=== PATIENT | male | born 2000 | race African-American/Black ===

== ENCOUNTER 2020-04-04 09:19 | Outpatient (REF) | payer OTHER, SELFPAY ==
[2020-04-04 10:06] LABS: MANUAL DIFF FLAG NO
[2020-04-04 10:30] LABS: Alanine Aminotransferase 14 U/L (0-40); Albumin Level 4.7 g/dL (3.5-5.0); Alkaline Phosphatase 86 U/L (39-117); Anion Gap 13 (12-20); Aspartate Amino Transferase 17 U/L (5-37); Bilirubin Total 1.5 mg/dL (0.0-1.0); Blood Urea Nitrogen 17 mg/dL (9-16); Calcium 9.5 mg/dL (8.4-10.2); Carbon Dioxide 27 mmol/L (22-29); Chloride 104 mmol/L (96-108); Cholesterol 126 mg/dL; Estimated Glomerular Filt Rate > 60; Glucose Fasting 85 mg/dL (60-99); HDL Cholesterol 49 mg/dL; LDL Cholesterol Calculated 69 mg/dl; Potassium 4.2 mmol/l (3.3-5.1); Sodium 140 mmol/L (135-145); Total Protein 7.2 g/dL (6.5-8.0); Triglycerides 44 mg/dL
[2020-04-04 10:33] LABS: Basophils Percent Auto 0.5 % (0-2); Eosinophils Absolute Auto 0.2 X10*3/uL (0.0-0.4); Eosinophils Percent Auto 4.7 % (0-4); Lymphocytes Absolute Auto 1.6 X10*3/uL (1.2-4.9); Lymphocytes Percent Auto 40.3 % (20-40); Mean Corpuscular HGB Conc 32.6 g/dl (31.0-36.0); Mean Corpuscular Hemoglobin 27.9 pg (27.0-33.0); Mean Corpuscular Volume 85.7 fL (80-98); Mean Platelet Volume 11.7 fL (9.4-12.4); Monocytes Absolute Auto 0.4 X10*3/uL (0.1-1.2); Monocytes Percent Auto 10.1 % (2-11); Neutrophils Absolute Auto 1.8 X10*3/uL (2.0-8.3); Neutrophils Percent Auto 44.4 % (45-73); Platelet Count 203 X10*3/uL (160-400); Red Blood Count 5.02 X10*6/uL (4.60-5.80); Red Cell Distribution Width 12.4 % (11.0-16.0)
== END 2020-04-04 09:20 | disposition home or self-care (01) ==
LOC: HO.LAB 09:19
PROVIDERS: PCP Internal Medicine; Visit Provider Internal Medicine
DX: E11.9 Type 2 diabetes mellitus without complications (principal); Z00.00 Encounter for general adult medical examination without abnormal findings
CPT/HCPCS: 36415; 80053; 80061; 85025

== ENCOUNTER 2020-05-12 09:14 | Outpatient (REF) | payer OTHER, SELFPAY | END 2020-05-12 09:15 | disposition home or self-care (01) | LOC: HO.LAB 09:14 | PROVIDERS: PCP Internal Medicine; Visit Provider Internal Medicine | DX: Z20.822 Contact with and (suspected) exposure to COVID-19 (principal) | CPT/HCPCS: 36415; C9803; U0003 ==

== ENCOUNTER → 2020-12-14 11:04 | Outpatient (BNVA) | payer SELFPAY | PROVIDERS: PCP Internal Medicine | DX: R76.11 Nonspecific reaction to tuberculin skin test without active tuberculosis (principal) ==

== ENCOUNTER 2021-08-04 10:45 | Outpatient (REF) | payer OTHER, SELFPAY ==
[2021-08-04 10:56] LABS: MANUAL DIFF FLAG NO
[2021-08-04 11:37] LABS: Basophils Percent Auto 0.9 % (0-2); Eosinophils Absolute Auto 0.3 X10*3/uL (0.0-0.4); Eosinophils Percent Auto 7.8 % (0-4); Hematocrit 44.6 % (42.0-52.0); Hemoglobin 14.3 g/dl (14.0-18.0); Imm Gran Abs Auto 0.01 X10*3/uL (0.00-0.03); Imm Gran Pct Auto 0.3 % (0.0-0.4); Lymphocytes Absolute Auto 1.4 X10*3/uL (1.2-4.9); Lymphocytes Percent Auto 43.9 % (20-40); Mean Corpuscular HGB Conc 32.1 g/dl (31.0-36.0); Mean Corpuscular Hemoglobin 28.4 pg (27.0-33.0); Mean Corpuscular Volume 88.7 fL (80.0-98.0); Mean Platelet Volume 10.9 fL (9.4-12.4); Monocytes Absolute Auto 0.3 X10*3/uL (0.1-1.2); Monocytes Percent Auto 10.7 % (2-11); Neutrophils Absolute Auto 1.2 x10*3/uL (2.0-8.3); Neutrophils Percent Auto 36.4 % (45-73); Platelet Count 232 X10*3/uL (160-400); Red Blood Count 5.03 X10*6/uL (4.60-5.80); White Blood Count 3.2 X10*3/uL (4.8-10.8)
[2021-08-04 12:47] LABS: Alanine Aminotransferase 17 U/L (0-40); Albumin Level 4.7 g/dL (3.5-5.0); Alkaline Phosphatase 89 U/L (39-117); Anion Gap 11 (12-20); Aspartate Amino Transferase 22 U/L (5-37); Bilirubin Total 1.7 mg/dL (0.0-1.0); Blood Urea Nitrogen 11 mg/dL (9-16); Carbon Dioxide 28 mmol/L (22-29); Chloride 104 mmol/L (96-108); Cholesterol 121 mg/dL; Estimated Glomerular Filt Rate > 60; Glucose Fasting 82 mg/dL (60-99); HDL Cholesterol 46 mg/dL; LDL Cholesterol Calculated 68 mg/dl; Potassium 4.7 mmol/L (3.3-5.1); Sodium 138 mmol/L (135-145); Total Protein 7.3 g/dL (6.5-8.0); Triglycerides 35 mg/dL
[2021-08-04 13:01] LABS: Thyroid Stimulating Hormone 1.12 uIU/mL (0.32-4.0)
== END 2021-08-04 10:46 | disposition home or self-care (01) ==
LOC: HO.LAB 10:45
PROVIDERS: PCP Internal Medicine; Visit Provider Internal Medicine
DX: Z00.00 Encounter for general adult medical examination without abnormal findings (principal); Z13.0 Encounter for screening for diseases of the blood and blood-forming organs and certain disorders involving the immune mechanism
CPT/HCPCS: 36415; 80053; 80061; 84443; 85025

== ENCOUNTER 2023-01-16 19:07 | Emergency (ER) | payer OTHER, SELFPAY ==
--- NOTE | ~2023-01-16 | CT_ITS ---
EXAMINATION: CT ABDOMEN AND PELVIS WITH CONTRAST CLINICAL INFORMATION: Mass right lower quadrant pain COMPARISON: None available. TECHNIQUE: Multidetector volumetric images were obtained from the superior aspect of the liver through the pubic symphysis following administration 85 mL of Omnipaque 350 intravenous contrast. Sagittal and coronal reformatted images were obtained on the technologist's workstation. Oral contrast: No This CT examination was performed using dose optimization techniques as appropriate, variously including the following: *Automated exposure control *Adjustment of mA and/or kV according to patient size (this includes techniques or standardized protocols for targeted exams where dose is matched to indication/reason for exam; i.e. extremities or head) *Use of iterative reconstruction technique DLP: 337 mGy-cm FINDINGS: LUNG BASES: The visualized lung bases are unremarkable. LIVER, GALLBLADDER, AND BILIARY TREE: The liver is normal in size, shape, and attenuation. No focal hepatic lesion or biliary ductal dilatation is present. The gallbladder is unremarkable with no evidence of radiopaque gallstones, gallbladder wall thickening, or obvious pericholecystic inflammatory changes. PANCREAS: Unremarkable. SPLEEN: Unremarkable. ADRENAL GLANDS: Unremarkable. KIDNEYS AND URETERS: The kidneys are normal in size, shape, and attenuation. No hydronephrosis, hydroureter, or calculi seen. No perinephric stranding. BLADDER: Unremarkable. GASTROINTESTINAL TRACT: No evidence of bowel obstruction or significant wall thickening. Appendix appears to be nondilated, with no surrounding inflammatory changes. No free fluid or free air is seen. ABDOMINAL WALL: No significant hernia is appreciated. LYMPH NODES: Normal. VASCULAR: Unremarkable. PELVIC VISCERA: Unremarkable. OSSEOUS STRUCTURES: Bilateral L5 pars defects are noted. CT/CT abdomen pelvis w IV con IMPRESSION: No acute findings identified in the abdomen/pelvis.
[2023-01-16 19:21] VITALS: BP 148/87; PULSE 63; RESP 18; TEMP 36.6; O2SAT 100; BMI 21.1
--- NOTE | 2023-01-16 19:26 | ED.GENADULT ---
HPI - General Adult General Chief complaint: Urogenital-Male Stated complaint: ?uti sent from urgent care Time Seen by Provider: 01/16/23 23:02 Source: patient and old records reviewed Mode of arrival: ambulatory Limitations: no limitations History of Present Illness HPI narrative: 22 yo male with no PMH who has sex with male and female partners sometimes unprotected recently unprotected with male partner - states he takes PrEp and is compliant. Was just tested for HIV last week and it was negative. He was started on doxy 01/13 and given ceftriaxone for presumed STI after going to [facility] on 01/13 he has been compliant. He was seen for R lymph node in groin and dysuria with dribbling but no drainage. He states his workup was negative but it was too early from exposure. He states he has had regular negative HIV tests every 6 months. He came tonight as the mass is painful and not getting better. He has no fevers. complaint: groin mass Onset (ago): week(s) (1.5) Location: pelvis and right Radiation: non-radiation Severity: moderate Quality: aching Pain Consistency: constant Relieving factors: none Exacerbating factors: movement and other (palpation) Associated symptoms: other (dysuria) Treatments prior to arrival: none Related Data Home Medications Medication Instructions Recorded Confirmed emtricitabine 200 mg-tenofovir 1 tab PO DAILY 07/15/20 08/12/22 disoproxil fumarate 300 mg tablet cevimeline 30 mg capsule 1 cap PO TID 08/04/21 08/12/22 hydroxychloroquine 200 mg tablet 200 mg PO DAILY 08/04/21 08/12/22 Previous Rx's Medication Instructions Recorded hydrocortisone 2.5 % topical cream 1 appl DC BID-QID PRN hemorrhoids 09/24/21 with perineal applicator #30 grams (Anusol-HC) Allergies Allergy/AdvReac Type Severity Reaction Status Date / Time benzoyl peroxide Allergy Unknown Facial Verified 01/16/23 19:26 Swelling onion Allergy Unknown Headache Verified 01/16/23 19:26 peanut Allergy Unknown Facial Verified 01/16/23 19:26 Swelling Review of Systems Review of Systems: Constitutional : No Weight loss, No Fever, No Chills, no night sweats ENT/Mouth : No sore throat, No Rhinorrhea Eyes: No Swelling, No Redness Cardiovascular : No Chest Pain, No SOB, NoEdema Respiratory : No Cough, No Sputum, No Wheezing Gastrointestinal : no Nausea, no Vomiting, no Diarrhea, positive abdominal Pain, No Hematochezia, No Melena Genitourinary : pos Dysuria, No Urinary Frequency, No Hematuria, No Urgency Musculoskeletal : No joint pain, No Myalgias, No Joint Swelling Skin : No Skin Lesions, No rash Neuro : No Weakness, No Numbness, No Dizziness, No Headache Psych : No Anxiety/Panic, No Depression Heme/Lymph: No Bruising, pos Lymphadenopathy All other systems reviewed and are negative. [facility] Past Medical History Attestation statement: The following information was validated with the patient. Medical History Sjogrens syndrome Surgical History No pertinent past surgical history Family History Family History Father No problems noted. Mother No problems noted. Social History Social History Housing: Apartment Alcohol intake: never Patient Tobacco Use Status: Never used Tobacco e-Cigarette/Vaping Use: Never Used Second Hand Smoke Exposure: No Advance Directives: No Advance Directives Information Provided: No service: No Current occupational status: student Current occupational exposures/hazards: No Cognitive needs: No Hearing needs: No Vision needs: No Physical Exam ED Vital Signs: Vital Signs - 24 hr 01/16/23 19:21 01/16/23 22:47 Temperature 97.8 F 97.8 F Pulse Rate 63 65 Respiratory Rate 18 18 Blood Pressure 148/87 H 135/89 Pulse Oximetry 100 100 Oxygen Delivery Method Room Air Room Air BMI result Body Mass Index 21.1 Appearance: Alert. Oriented X3. No acute distress. Eyes: Pupils equal, round and reactive to light. ENT: Pharynx normal. Neck: Normal inspection. Neck supple. no lymphadenopathy CVS: Normal heart rate and rhythm. Pulses normal. Respiratory: No respiratory distress. Breath sounds normal. Abdomen: Soft and non-tender. : testicles and penis are normal. R groin soft but boggy 2cm node felt no necrosis felt. Skin: Skin warm and dry. Normal skin color. Normal skin turgor. Extremities: No lower extremity edema. Neuro: Oriented X 3. No motor deficit. No sensory deficit. Course Course Course Narrative: RME performed by Geovanna Porter PA-C. Patient is a 22 year old assigned male at presenting to the emergency department with right groin swelling. Patient was seen at a sexual health clinic that tested and treated him for STI despite him being negative. Patient states that he is on day 4 of doxycycline but it is not getting better. Patient states that he is also having pain with urination. Labs ordered. Patient placed back in the waiting room pending room availability and results. Medications Administered Discontinued Medications Generic Name Dose Route Start Last Admin Trade Name Freq PRN Reason Stop Dose Admin Iohexol 85 ml 01/17/23 00:27 01/17/23 00:27 Iohexol 350 Mg/Ml 100 Ml Infus..Btl IV 01/17/23 00:28 85 ml ONCE ONE Administration Medical Decision Making Medical Decision Making [facility] Narrative: 22 yo male who is on PrEp has unprotected sex with males and females now with painful node in R groin already on doxy since 01/13 with no improvement he has no other B symptoms - he reports recent negative HIV test and 6 months ago negative test. At this time penis and testicles are normal no hernia felt is seems like a node. Will obtain labs, UA, CT scan of area to look for other lymphadenopathy or signs of abscess. Could be ducreyi, HIV or LGV would need extension of treatment to 21 days and PCP follow up. Differential Diagnosis Differential Diagnoses: The differential diagnosis associated with the presentation includes abscess, HIV, LGV, ducreyi Admission/Observation Consideration of admission/observation: Escalation of care including admission/observation considered labs at baseline, urine negative studies pending at this time will continue doxy and follow up will have him follow up with [facility] to possibly continue 21 days of treatment Lab Data [facility] Lab Attestation statement: I reviewed the patient's lab results. WBC around his trend 01/16/23 20:22 01/16/23 20:22 Labs: Lab Results 01/16/23 Range/Units 20:22 WBC 2.7 L (4.8-10.8) X10*3/uL RBC 4.86 (4.60-5.80) X10*6/uL Hgb 13.8 L (14.0-18.0) g/dl Hct 42.1 (42.0-52.0) % MCV 86.6 (80.0-98.0) fL MCH 28.4 (27.0-33.0) pg MCHC 32.8 (31.0-36.0) g/dl RDW 12.3 (11.0-16.0) % Plt Count 183 (160-400) X10*3/uL MPV 10.9 (9.4-12.4) fL Immature Gran % (Auto) 0.0 (0.0-0.4) % Neut % (Auto) 19.5 L (45-73) % Lymph % (Auto) 53.9 H (20-40) % [place] % (Auto) 18.1 H (2-11) % Eos % (Auto) 8.1 H (0-4) % Baso % (Auto) 0.4 (0-2) % Lymph # (Auto) 1.5 (1.2-4.9) X10*3/uL [place] # (Auto) 0.5 (0.1-1.2) X10*3/uL Eos # (Auto) 0.2 (0.0-0.4) X10*3/uL Baso # (Auto) 0.0 (0.0-0.2) X10*3/uL Abs Immat Gran (auto) 0.00 (0.00-0.03) X10*3/uL Absolute Neuts (auto) 0.5 L (2.0-8.3) x10*3/uL Absolute Nucleated RBC 0.000 (0.0-0.012) X10*3/uL Nucleated RBC % (auto) 0.0 (0.0-0.2) /100WBC Sodium 141 (135-145) mmol/L Potassium 4.3 (3.3-5.1) mmol/L Chloride 110 H (96-108) mmol/L Carbon Dioxide 22 (22-29) mmol/L Anion Gap 13 (12-20) BUN 8 L (9-16) mg/dL Creatinine 0.81 (0.5-1.4) mg/dL Estim Creat Clear Calc 120.2 Estimated GFR > 60 Random Glucose 95 (60-115) mg/dL Calcium 9.0 D (8.4-10.2) mg/dL Magnesium 2.2 (1.6-2.6) mg/dL Total Bilirubin 0.8 (0.0-1.0) mg/dL AST 21 (5-37) U/L ALT 17 (0-40) U/L Alkaline Phosphatase 98 (39-117) U/L Total Protein 7.0 (6.5-8.0) g/dL Albumin 4.4 (3.5-5.0) g/dL Urine Color Yellow Urine Appearance Clear Urine pH 6.5 (5.0-9.0) Ur Specific [place] 1.010 (1.005-1.025) Urine Protein Negative (Neg-Trace) mg/dL Urine Glucose (UA) Negative (Negative) mg/dL Urine Ketones Negative (Negative) mg/dL Urine Blood Negative (Negative) Urine Nitrite Negative (Negative) Ur Leukocyte Esterase Negative (Negative) T.pallidum Ab (EIA) Nonreactive (Nonreactive) Monoscreen Negative (Negative) HIV 1&2 Ab/P24 Ag 4thGn Nonreactive (Nonreactive) Independent Interpretation I performed an independent interpretation of an: CT Scan (no lymphadenopathy, no hernia) Radiology Impression Discussion of test interpretation with radiology: I have reviewed the radiologist's reading. External Record Review External record reviewed: Inpatient record Prescription Management I considered prescription management with: Antibiotic Discharge Plan Discharge Clinical Impression: Inguinal mass Leukopenia Qualifiers: Leukopenia type: unspecified Qualified Code(s): D72.819 - Decreased white blood cell count, unspecified Patient Disposition: Home, Self-Care Instructions: Adenitis (ED) Additional Instructions: at this time continue the doxycycline return for worsening symptoms. Return for fevers, vomiting, at this time pending syphillis and HIV we will call for positive test. CT scan no mass or lesion seen. I want you to follow up with [facility] to assess for improvement in 1 week - may need 21 days of treatment for possible LGV. please follow up with your doctor about chronically low WBC counts. Please also see your doctor about this lesion in 2 days for check. Prescriptions: No Action hydrocortisone [Anusol-HC] 2.5 % cream with perineal applicator 1 appl DC BID-QID PRN (Reason: hemorrhoids) Qty: 30 2RF emtricitabine-tenofovir (TDF) 200-300 mg tablet 1 tab PO DAILY hydroxychloroquine 200 mg tablet 200 mg PO DAILY cevimeline 30 mg capsule 1 cap PO TID Interventions: ED Discharge Assessment Last Done: 01/17/23 02:25 Discharge Date/Time: 01/17/23 02:25
[2023-01-16 20:27] LABS: MANUAL DIFF FLAG NO
[2023-01-16 20:29] LABS: Appearance Urine Clear; Basophils Percent Auto 0.4 % (0-2); Color Urine Yellow; Eosinophils Absolute Auto 0.2 X10*3/uL (0.0-0.4); Eosinophils Percent Auto 8.1 % (0-4); Glucose Urine UA Negative (Negative); Hematocrit 42.1 % (42.0-52.0); Hemoglobin 13.8 g/dl (14.0-18.0); Leukocyte Esterase Urine Negative (Negative); Lymphocytes Absolute Auto 1.5 X10*3/uL (1.2-4.9); Lymphocytes Percent Auto 53.9 % (20-40); Mean Corpuscular HGB Conc 32.8 g/dl (31.0-36.0); Mean Corpuscular Hemoglobin 28.4 pg (27.0-33.0); Mean Corpuscular Volume 86.6 fL (80.0-98.0); Mean Platelet Volume 10.9 fL (9.4-12.4); Monocytes Absolute Auto 0.5 X10*3/uL (0.1-1.2); Monocytes Percent Auto 18.1 % (2-11); Neutrophils Absolute Auto 0.5 x10*3/uL (2.0-8.3); Neutrophils Percent Auto 19.5 % (45-73); Nitrite Urine Negative (Negative); PH 6.5 (5.0-9.0); Platelet Count 183 X10*3/uL (160-400); Red Blood Count 4.86 X10*6/uL (4.60-5.80); Red Cell Distribution Width 12.3 % (11.0-16.0); SCAN SMEAR FLAG 1; Urine Blood Negative (Negative); Urine Ketones Negative (Negative); Urine Protein Negative (Neg-Trace); White Blood Count 2.7 X10*3/uL (4.8-10.8)
[2023-01-16 20:42] LABS: Alanine Aminotransferase 17 U/L (0-40); Albumin Level 4.4 g/dL (3.5-5.0); Alkaline Phosphatase 98 U/L (39-117); Anion Gap 13 (12-20); Aspartate Amino Transferase 21 U/L (5-37); Bilirubin Total 0.8 mg/dL (0.0-1.0); Blood Urea Nitrogen 8 mg/dL (9-16); Carbon Dioxide 22 mmol/L (22-29); Chloride 110 mmol/L (96-108); Creatinine Clr Calc Pharmacy 120.2; Estimated Glomerular Filt Rate > 60; Glucose Random 95 mg/dL (60-115); Magnesium 2.2 mg/dL (1.6-2.6); Potassium 4.3 mmol/L (3.3-5.1); Sodium 141 mmol/L (135-145)
[2023-01-16 22:47] VITALS: BP 135/89; PULSE 65; RESP 18; TEMP 36.6; O2SAT 100
[2023-01-16 23:46] LABS: Monotest Negative (Negative)
[2023-01-17] MEDS: iohexoL 350 MG/ML 100 ML INFUS..BTL 85 ML IV (00:27)
[2023-01-17 03:38] LABS: Syphilis Screen Nonreactive (Nonreactive)
[2023-01-17 03:45] LABS: HIV AB/AG Nonreactive (Nonreactive); HIV Num 1 0.07 S/CO (0.00-0.99)
== END 2023-01-17 02:25 | disposition home or self-care (01) ==
PROVIDERS: Physician Assistant Medical; Emergency Provider Emergency Medicine; PCP Internal Medicine
DX: R19.09 Other intra-abdominal and pelvic swelling, mass and lump (principal); D72.819 Decreased white blood cell count, unspecified; M35.00 Sjogren syndrome, unspecified
CPT/HCPCS: 36415; 74177; 80053; 81003; 83735; 85025; 86308; 86780; 87389; 99283; 99284; Q9967

== ENCOUNTER 2023-01-18 13:31 | Emergency (ER) | payer OTHER, SELFPAY ==
[2023-01-18 13:44] VITALS: BP 135/88; PULSE 69; RESP 16; TEMP 36.6; O2SAT 100; BMI 21.1
--- NOTE | 2023-01-18 14:36 | ED_ITS ---
HPI - Male Genitourinary General Chief complaint: Urogenital-Male Stated complaint: Injury To Private Area Wk And A Half Ago Time Seen by Provider: 01/18/23 14:35 Source: patient Mode of arrival: ambulatory Limitations: no limitations History of Present Illness HPI Narrative: Patient is a 22 year old assigned male at with a history of Sjogrens syndrome presenting to the emergency department today with penile pain and urinary incontinence. Patient states that 12 days ago he was having unprotected sex that involved forceful thrusting. Patient states that during intercourse, he felt a pop in his penis but did not have any remarkable pain immediately after. Patient states that afterwards, he noticed a lymph node in his groin become swollen. Patient states that he was seen both here and at the [facility] where he was tested and treated for all STIs. Patient states that he is still on his prescribed Doxycycline. Patient states that his complaint today is the tip of his penis has minimal redness and swelling. Patient states that he is having some urinary dribbling from his penis that his new for him since this has begun. Patient states that he is also having some pain with urination. Patient states he feels as though something is obstructing within his penis. Patient denies any dizziness, lightheadedness, abdominal pain, nausea, vomiting, fever, chills, blurry vision, double vision, loss of vision, chest pain, difficulty breathing, shortness of breath, back pain, night sweats, increased urinary frequency, increased urinary urgency, blood in his urine or stool, syncope or a near syncopal episode, recent trauma or falls, bowel incontinence, bladder incontinence, bowel retention, bladder retention, or any other complaints at this time. MD Complaint: other (penile pain) Onset (ago): day(s) () Duration: constant Location: penis Severity: mild Severity scale (1-10): 3 Quality: aching and dull Relieving factors: none Exacerbating factors: none Context: new sexual partner Associated symptoms: Reports dysuria Related Data Sexually active: Yes Home Medications Medication Instructions Recorded Confirmed emtricitabine 200 mg-tenofovir 1 tab PO DAILY 07/15/20 08/12/22 disoproxil fumarate 300 mg tablet cevimeline 30 mg capsule 1 cap PO TID 08/04/21 08/12/22 hydroxychloroquine 200 mg tablet 200 mg PO DAILY 08/04/21 08/12/22 Previous Rx's Medication Instructions Recorded hydrocortisone 2.5 % topical cream 1 appl DE BID-QID PRN hemorrhoids 09/24/21 with perineal applicator #30 grams (Anusol-HC) Allergies Allergy/AdvReac Type Severity Reaction Status Date / Time benzoyl peroxide Allergy Unknown Facial Verified 01/18/23 13:43 Swelling onion Allergy Unknown Headache Verified 01/18/23 13:43 peanut Allergy Unknown Facial Verified 01/18/23 13:43 Swelling Review of Systems Constitutional: Constitutional: Reports no additional constitutional complaints, Denies chills, Denies fever(s) and Denies night sweats Eyes: Eyes: Reports no additional eye complaints, Denies blurry vision, Denies change in vision, Denies diplopia, Denies eye discharge, Denies loss of vision and Denies eye pain ENT: Denies dizziness Cardiovascular: Cardiovascular: Reports no additional cardiovascular complaints, Denies chest pain, Denies lightheadedness, Denies Loss of Consciousness and Denies dyspnea Respiratory: Respiratory: Reports no additional respiratory complaints and Denies dyspnea Gastrointestinal: Gastrointestinal: Reports no additional gastrointestinal complaints, Denies abdominal pain, Denies melena, Denies hematochezia, Denies change in bowel habits and Denies change in stool character Genitourinary: Genitourinary: Reports no additional male genitourinary complaints, Denies hematuria, Denies oliguria, Denies difficulty urinating, Reports dysuria, Denies urinary frequency, Denies urinary hesitancy, Denies urinary incontinence and Denies urinary urgency Comments: penile pain Musculoskeletal: Musculoskeletal: Reports no additional musculoskeletal complaints, Denies numbness and Denies tingling Neurologic: Denies dizziness, Denies loss of vision, Denies numbness and Denies tingling Psychiatric: Psychiatric: Reports no additional psychiatric complaints Endocrine: Endocrine: Reports no additional endocrine complaints Hematologic/Lymphatic: Hematologic/Lymphatic: Reports no additional hematologic/lymphatic complaints Allergic/Immunologic: Allergic/Immunologic: Reports no additional allergic/immunologic complaints PMFSH Past Medical History Attestation statement: The following information was validated with the patient. Source: old records reviewed and nursing notes reviewed Medical History Rash on lips Physical exam Sjogrens syndrome Surgical History No pertinent past surgical history Family History Family History Father No problems noted. Mother No problems noted. Social History Social History Housing: Apartment Alcohol intake: never Patient Tobacco Use Status: Never used Tobacco e-Cigarette/Vaping Use: Never Used Second Hand Smoke Exposure: No service: No Current occupational status: student Current occupational exposures/hazards: No Cognitive needs: No Hearing needs: No Vision needs: No Physical Exam Vital Signs: Vital Signs: Last Vital Signs Temp 98 F 01/18/23 13:44 Pulse 69 01/18/23 13:44 Resp 16 01/18/23 13:44 BP 135/88 01/18/23 13:44 Pulse Ox 100 01/18/23 13:44 O2 Del Method Room Air 01/18/23 13:44 BMI result Body Mass Index 21.1 Const: General: cooperative, no acute distress, alert and awake Nutritional Appearance: well nourished Orientation/consciousness: patient oriented x3 Limitations: no limitations HEENT: Head: Yes normal to inspection and Yes atraumatic Ears: hearing grossly normal bilaterally and external ears normal General nose exam: Normal external nose present, no nasal discharge noted and no epistaxis Face and sinus: Yes normal facial exam, No abrasion and No laceration Mouth: Normal oral and palatal mucosa present, no drooling and no muffled voice Eyes: General: appearance normal, both eyes and all related structures Periorbital: periorbital findings normal Eyelids: Yes eyelids normal Conjunctivae: conjunctivae normal Pupils: Equal, round and reactive pupils present EOM: EOMs intact bilaterally Neck: Neck: Yes normal visual inspection, Yes full ROM and Yes no lymphadenopathy Chest: Chest palpation & inspection: normal inspection of the chest Resp: Effort & Inspection: normal respiratory effort and able to speak in complete sentences GI: Inspection: Yes normal to inspection : Other: minimal erythema and swelling of the penile head Neuro: General: patient oriented x3 and moves all extremities Cranial nerves: Yes Equal, round and reactive pupils present Cognition (Neuro): normal cognition Motor exam (neuro): 5/5 motor strength present throughout Sensory Exam: Normal double simultaneous stimulation for sensation Coordination: [id number] test normal Extrem: General: Yes normal to inspection, Yes full ROM and Yes capillary refill normal Psych: Appearance: grossly normal Mental Status: mental status grossly normal Affect: normal affect Attitude: cooperative Thought process: Normal thought process present Thought content: Normal thought content present Insight: Good insight present (Psych) Medical Decision Making Medical Decision Making MDM Narrative: Patient is a 22 year old assigned male at with a history of Sjogrens Syndrome presenting to the emergency department today with penile pain. Patient's physical exam was as noted in the physical exam portion of this note. I reviewed the patient's ED visit from 01/16/2023, including his CT result, STI testing, and blood work. I called and spoke to Dr. Jeffers, the urologist, who recommended bladder scanning the patient and having him follow up in the office tomorrow at 10:30am. Patient's bladder scan post void was 5ml. I explained my physical exam findings as well as all test results to the patient. I answered all questions asked by the patient. I stressed the importance of the patient taking his medication as prescribed. I stressed the importance of the patient following up with his primary care provider and the urologist. I stressed the importance of the patient returning to the emergency department immediately if his symptoms were to worsen or if he were to develop any dizziness, shortness of breath, difficulty breathing, chest pain, blurry vision, loss of vision, nausea, vomiting, abdominal pain, fever, chills, back pain, or any other complaints. Patient verbalized agreement and understanding with this treatment plan and discharge. Differential Diagnosis Differential Diagnoses: The differential diagnosis associated with the presentation includes Penile pain Penile obstruction STI Consult Healthcare Provider Management of the patient was discussed with: Environmental Compliance Technician (spoke with Dr. Jeffers as noted in the MDM portion of this note.) External Record Review External record reviewed: Other (reviewed prior ED record.) Critical Care Time Critical Care Time Critical Care Time: Yes Total Critical Care Time: 40 Attestation: I spent 40 minutes of Critical Care Time with this patient. This does not include time spent on separately reported billable procedures. Discharge Plan Discharge Clinical Impression: Pain in penis Patient Disposition: Home, Self-Care Additional Instructions: Follow up with the Urologist tomorrow (01/19/2023) at 10:30am as scheduled. Continue taking your doxycycline. Return to the emergency department immediately if your symptoms worsen or if you develop any dizziness, shortness of breath, difficulty breathing, chest pain, blurry vision, loss of vision, nausea, vomiting, abdominal pain, fever, chills, back pain, or any other complaints. Prescriptions: No Action hydrocortisone [Anusol-HC] 2.5 % cream with perineal applicator 1 appl DE BID-QID PRN (Reason: hemorrhoids) Qty: 30 2RF emtricitabine-tenofovir (TDF) 200-300 mg tablet 1 tab PO DAILY hydroxychloroquine 200 mg tablet 200 mg PO DAILY cevimeline 30 mg capsule 1 cap PO TID Referrals: [facility] [Provider Group] (Attend your 10:30am appointment on 01/19/2023.) Brian Manjarrez MD [Primary Care Provider] - Stand Alone Forms: Work/School Release Interventions: ED Discharge Assessment Last Done: 01/18/23 15:42 Discharge Date/Time: 01/18/23 15:42 Print Language: Norwegian
== END 2023-01-18 15:42 | disposition home or self-care (01) ==
PROVIDERS: Emergency Provider Emergency Medicine; PCP Internal Medicine
DX: R32 Unspecified urinary incontinence (principal); N48.89 Other specified disorders of penis
CPT/HCPCS: 51798; 99282; 99283

== ENCOUNTER 2023-01-19 10:18 | Outpatient (AMB) | payer OTHER, SELFPAY ==
--- NOTE | 2023-01-19 10:19 | A.OFFVIS_ITS ---
Intake Intake Visit Reasons: ED follow up Intake Note: NEW Patient presents today for ED follow-up: Meds- None Allergies to Antibiotic- No Known Allergies Blood Thinner- None Unable to void Patient Symptoms- Dysuria, incontinence, unable to sleep due to having pain when changing position. 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 of penile pain. 01/19/2023? He presents today for an evaluation of?penile pain and dysuria. He was seen in ED on 01/18/2023 for pain in penis. The patient was advised to continue taking doxycycline, and he was advised to follow-up with urologist during that time.? Patient states that 13 days ago he had unprotected sex. He states that he had anal intercourse. He reports that the tip of the penis had minimal redness and swelling. He states that he is having penile pain. He also reports dyrsuria, incontinence at this time. Patient states that he is unable to sleep due to having pain while changing the positions. He denies any hematuria, and denies any swelling of the penis.He states that he was tested for all STDs. He denies prior STDs. I reviewed CT of the abdomen/pelvis results from 01/17/2023 revealed no hydronephrosis, hydroureter, or calculi seen. No perinephric stranding.? ? Examination: Prostate was tender to palpation. Also tenderness at the distal portion of the penile shaft I discussed with the patient that the exam was suggestive of prostatitis. I also discussed that sometimes with intercourse there can be a tear to the membrane that surround the penis, and if significant scarring persists, there can be bending to the penis in future. Plan: Bactrim DS BID for 2 weeks, and Naproxen BID for 2 weeks was ordered. [facility] Medical History Rash on lips Physical exam Sjogrens syndrome Surgical History No pertinent past surgical history Family History Father No problems noted. Mother No problems noted. Social History Housing: Apartment Alcohol intake: never Patient Tobacco Use Status: Never used Tobacco e-Cigarette/Vaping Use: Never Used Second Hand Smoke Exposure: No service: No Current occupational status: student Current occupational exposures/hazards: No Cognitive needs: No Hearing needs: No Vision needs: No Review of Systems Const All systems reviewed & are unremarkable except as noted in HPI and below Reports no additional complaints Eyes Reports no additional complaints ENT Reports no additional complaints Card Denies dyspnea Resp Denies cough and Denies dyspnea GI Reports no additional complaints Musc Reports no additional complaints Skin/Breast Denies rash and Denies unusual bruising Neuro Reports no additional complaints Psych Reports no additional complaints Endo Reports no additional complaints Noel/Lymph Reports no additional complaints Aller/Immun Reports no additional complaints Physical Exam Const General: healthy appearing, no acute distress and well developed Orientation/consciousness: patient oriented x3 HEENT Head: Yes normocephalic and Yes atraumatic Eyes Conjunctivae: conjunctivae normal Neck Neck: Yes normal visual inspection Chest Chest palpation & inspection: normal inspection of the chest Resp Effort & Inspection: normal respiratory effort Cardio Rate: regular rate GI Inspection: Yes normal to inspection Palpation (GI): Soft to palpation Other: Prostate Exam: Prostate was tender to palpation Also tenderness at the distal portion of the penile shaft Scrotum: scrotum normal Skin General skin exam: no rashes or lesions noted Neuro General: patient oriented x3 Extrem General: No pedal edema Psych Appearance: grossly normal Affect: normal affect Results Reviewed Results Reviewed: Date of Service: 01/17/23 EXAMINATION: CT ABDOMEN AND PELVIS WITH CONTRAST?? CLINICAL INFORMATION: Mass right lower quadrant pain?? COMPARISON: None available. FINDINGS: LUNG BASES: The visualized lung bases are unremarkable.?? LIVER, GALLBLADDER, AND BILIARY TREE: The liver is normal in size, shape, and attenuation. No focal hepatic lesion or biliary ductal dilatation is present. The gallbladder is unremarkable with no evidence of radiopaque gallstones, gallbladder wall thickening, or obvious pericholecystic inflammatory changes.?? PANCREAS: Unremarkable.?? SPLEEN: Unremarkable.?? ADRENAL GLANDS: Unremarkable.?? KIDNEYS AND URETERS: The kidneys are normal in size, shape, and attenuation. No hydronephrosis, hydroureter, or calculi seen. No perinephric stranding.? ? BLADDER: Unremarkable.?? GASTROINTESTINAL TRACT: No evidence of bowel obstruction or significant wall thickening. Appendix appears to be nondilated, with no surrounding inflammatory changes. No free fluid or free air is seen. ABDOMINAL WALL: No significant hernia is appreciated.?? LYMPH NODES: Normal. VASCULAR: Unremarkable. PELVIC VISCERA: Unremarkable.?? OSSEOUS STRUCTURES: Bilateral L5 pars defects are noted.?? IMPRESSION: No acute findings identified in the abdomen/pelvis Assessment & Plan Assessment & Plan (1) Dysuria: Code(s): R30.0 - Dysuria (2) Prostatitis: Code(s): N41.9 - Inflammatory disease of prostate, unspecified (3) Pain in penis: Code(s): N48.89 - Other specified disorders of penis Plan Bactrim DS BID for 2 weeks, and Naproxen BID for 2 weeks was ordered. Patient Instructions: The patient had an opportunity to ask questions regarding treatment plan. All questions were answered. Imaging, Laboratory studies and physical exam results were discussed and reviewed in detail. No major barriers to understanding were identified. The patient expressed understanding and agreement with the above treatment plan.? ? ? The patient is aware they should contact our office by phone for worsening of their current condition or the appearance of new symptoms. Compliance is encouraged with any medications and followup testing that is ordered.? ? ? It is a privilege to be allowed the opportunity to participate in the urologic care of your patient. If you have any questions or concerns regarding treatment for the above conditions please do not hesitate to contact me. The office telephone contact is [phone].? ? ? This note is constructed in part using voice recognition software. While every effort has been made to ensure accuracy travel registered nurse nicu errors may have been included.? ? ? Yours sincerely,? ? ? Mily Szymanski MD? Coding Level of Care Code New Pt Level 4 (31110) Diagnoses Dysuria R30.0 Prostatitis N41.9 Pain in penis N48.89
== END 2023-01-19 11:36 | disposition home or self-care (01) ==
PROVIDERS: PCP Internal Medicine; Visit Provider Urology
DX: R30.0 Dysuria (principal); N41.9 Inflammatory disease of prostate, unspecified; N48.89 Other specified disorders of penis
CPT/HCPCS: 99204

== ENCOUNTER → 2023-01-19 10:18 | Outpatient (BNVA) | payer OTHER, SELFPAY | PROVIDERS: PCP Internal Medicine; Visit Provider Urology | DX: N41.9 Inflammatory disease of prostate, unspecified (principal); R30.0 Dysuria; N48.89 Other specified disorders of penis | CPT/HCPCS: 99202 ==

== ENCOUNTER 2024-01-31 11:13 | Outpatient (AMB) | payer OTHER, SELFPAY ==
[2024-01-31 11:20] VITALS: BP 110/68; PULSE 64; O2SAT 97; BMI 22.1
--- NOTE | 2024-01-31 11:20 | A.OFFPC_ITS ---
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 Accompanied by: Self / Same As Patient Allergies benzoyl peroxide Allergy (Unknown, Verified 01/31/24 11:25) Facial Swelling onion Allergy (Unknown, Verified 01/31/24 11:25) Headache peanut Allergy (Unknown, Verified 01/31/24 11:25) Facial Swelling Medication List - Last Reconciled 02/01/24 by Brian Manjarrez MD cevimeline 1 cap PO TID emtricitabine-tenofovir (TDF) 200-300 mg 1 tab PO DAILY hydrocortisone 2.5% (Anusol-HC) 1 appl UT BID-QID PRN naproxen (Naprosyn) 500 mg PO Q12H PRN sulfamethoxazole-trimethoprim 800-160 mg (Bactrim DS) 1 tab PO BID 14 days Tobacco use date assessed: 01/31/24 Dental Screening Dental Screen Date: 01/31/24 Did you have a dental visit in the last 12 months?: No Did you have a dental problem in the last 6 months where you did not have access to dental care?: No Was dental information given to patient?: Yes HPI Overdue F/U HPI Details Sjogrens syndrome; only symptom is dry mouth; doing well with increased fluid intake PFSH Medical History Rash on lips Physical exam Sjogrens syndrome Surgical History No pertinent past surgical history Family History Father No problems noted. Mother No problems noted. Social History Housing: Apartment Alcohol intake: never Patient Tobacco Use Status: Never used Tobacco Tobacco use type: Cigarette e-Cigarette/Vaping Use: Never Used Second Hand Smoke Exposure: No service: No Current occupational status: student Current occupational exposures/hazards: No Cognitive needs: No Hearing needs: No Vision needs: No Questionnaire PHQ-9 Over the last 2 weeks, how often have you been bothered by any of the following problems? 1. Little interest or pleasure in doing things: not at all 2. Feeling down, depressed, or hopeless: not at all 3. Trouble falling or staying asleep, or sleeping too much: not at all 4. Feeling tired or having little energy: not at all 5. Poor appetite or overeating: not at all 6. Feeling bad about yourself - or that you are a failure or have let yourself or your family down: not at all 7. Trouble concentrating on things, such as reading the newspaper or watching television: not at all 8. Moving or speaking so slowly that other people could have noticed. Or the opposite - being so fidgety or restless that you have been moving around a lot m ore than usual: not at all 9. Thoughts that you would be better off or of hurting yourself in some way: not at all Total score: 0 Depression Screening Interpretation: Negative Depression Screening Done: Yes 32617 - PHQ-9 Billing: Yes Source: Developed by Drs. Deng Mckeon, Andria Morejon, Lee Keenan and colleagues, with an educational cruzito from [employer]. Thrive Questionnaire Date Thrive assessed: 01/31/24 I am a: Patient What is your living situation today?: I have a steady place to live Within the past 12 months, did the food you bought not last and you didn't have the money to get more?: Never true Within the past 12 months, did you worry whether your food would run out before you got money to buy more?: Never true Are you currently unemployed and looking for a job?: No THRIVE Score: 0 AUDIT C Alcohol Use Questionnaire (AUDIT-C) 1. How often do you have a drink containing alcohol?: Never Total Score: 0 CHRISTINA-7 AMB Questionnaire CHRISTINA-7 Date CHRISTINA - 7 assessed: 01/31/24 Feeling nervous, anxious, or on edge: 0 = Not at all Not being able to stop or control worryin = Not at all Worrying too much about different things: 0 = Not at all Trouble relaxin = Not at all Being so restless that it is hard to sit still: 0 = Not at all Becoming easily annoyed or irritable: 0 = Not at all Feeling afraid as if something awful might happen: 0 = Not at all Total CHRISTINA-7 score (0-4 normal; 5-9 mild; 10-14 moderate; 15-21 severe): 0 Source: Developed by Drs. Deng Mckeon, Andria Morejon, Lee Keenan and colleagues, with an educational cruzito from [employer]. CHRISTINA-7 Assessment Billing CHRISTINA-7 Assessment Tool: CHRISTINA-7 Assessment 30179 Review of Systems Const Denies chills, Denies headache(s) and Denies weight loss ENT Denies headache(s) Card Denies chest pain, Denies syncope, Denies irregular heart rhythm and Denies dyspnea Resp Denies chest congestion, Denies cough and Denies dyspnea GI Denies abdominal pain, Denies change in stool character, Denies nausea and Denies vomiting Musc Denies deformity and Denies joint swelling Neuro Denies syncope and Denies headache(s) Physical exam (Primary Care) Vital Signs: Last Vital Signs Pulse 64 01/31/24 11:20 BP 110/68 01/31/24 11:20 Pulse Ox 97 01/31/24 11:20 Oxygen Delivery Method Room Air 01/31/24 11:20 BMI result Body Mass Index 22.1 Tobacco/Smoking Status: Tobacco use Status Tobacco use date assessed 01/31/24 01/31/24 11:25 Patient Tobacco Use Status Never used Tobacco 01/31/24 11:25 Tobacco use type Cigarette 01/31/24 11:25 e-Cigarette/Vaping Use Never Used 01/31/24 11:25 PHQ-9: PHQ-9 Score PHQ-9: Total score 0 01/31/24 11:25 Depression Screening Interpretation: Negative Thrive Assessment: Date of Thrive Assessment Date Thrive assessed 01/31/24 01/31/24 11:25 Const General: cooperative, comfortable, no acute distress and alert Neck Neck: Yes no lymphadenopathy Thyroid: Thyroid normal Resp Effort & Inspection: normal respiratory effort Auscultation: clear to auscultation bilaterally Percussion: percussion normal Cardio Jugular venous distension: no JVD Palpation: normal PMI Rate: regular rate Rhythm: regular rhythm Heart sounds: S1 normal heart sound present and S2 normal heart sound present GI Inspection: Yes normal to inspection Palpation (GI): No hepatosplenomegaly present Skin General skin exam: no rashes or lesions noted Extrem General: Yes no clubbing, cyanosis or edema Coding Level of Care Code Est Pt Level 3 (78464) Diagnoses Sjogrens syndrome M35.00 Additional Codes CHRISTINA-7 Assessment Billing - CHRISTINA-7 Assessment Tool: CHRISTINA-7 Assessment 20874 ([id number]) Assessment & Plan Assessment & Plan (1) Sjogrens syndrome: Code(s): M35.00 - Sjogren syndrome, unspecified Category: Medical Plan: cont rx; 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
== END 2024-01-31 14:09 | disposition home or self-care (01) ==
PROVIDERS: PCP Internal Medicine; Visit Provider Internal Medicine
DX: M35.00 Sjogren syndrome, unspecified (principal)

== ENCOUNTER → 2024-01-31 11:13 | Outpatient (BNVA) | payer OTHER, SELFPAY | PROVIDERS: PCP Internal Medicine; Visit Provider Internal Medicine | DX: M35.00 Sjogren syndrome, unspecified (principal) | CPT/HCPCS: 96127; 99212 ==

== ENCOUNTER 2025-02-11 11:36 | Outpatient (AMB) | payer OTHER, SELFPAY ==
--- OUTSIDE RECORDS SUMMARY | 2023-10-02 09:00 | XMS_ITS ---
Author Organization [facility] Address [address] [place] [address] Care Team Providers Care Drug Enforcement Agent Name Role Phone PILAR DAVISON [phone] REASON FOR VISIT prep labs Social History Sex Assigned At : Social History Observation Description Sex Assigned At Male Encounters Encounter Location Date Provider Diagnosis [facility] [address] [place] [phone] 10/02/2023 PILAR DAVISON Plan Of Treatment Next Appt Details Provider Name:SHANTA OLIVA, 03/2025 11:15:00 AM, [address] [place] [address], [phone], Progress Notes * Aisha COMER ODOB: 2000 (24 yo M)Acc No.[id number]:10/02/2023 LAB Patient: Aisha Narayan O Provider: Patrick Davison NP :2000 A ge:23 Y S ex:Male Date:10/02/2023 Address:[address], [address] , [place], [id number] Subjective: * Chief Complaints: * P rep labs * Electronic signature of JACK DAVISON NP on 02/11/2025 at 03:08 PM EDT Sign off status: Pending * Provider: Patrick Davison NP Date: 0 10/02/2023 Generated for Printi ng/Faxing/eTransmitting on: 1 03:08 PM EDT
--- OUTSIDE RECORDS SUMMARY | 2024-05-10 06:45 | XMS_ITS ---
Author Organization [facility] Address [address] [place] [address] Care Team Providers Care Chisel Mortiser Operator Name Role Phone PJ SHANTA Unavailable [phone] REASON FOR VISIT Counseling/Testing Medications Medication SIG (Take, Route, Frequency, Duration) Notes Start Date End Date Status Doxycycline Hyclate 100 MG Tablet 2 tablets Orally Take ideally within 24 hours but can be up to 72 hours after unprotected episode. No more than 1 dose in 24 hours; Duration: 30 days 01/24/2024 Active Truvada 200-300 MG Tablet 1 tablet Orall y Once a day; Duration: 90 days Active Social History Sex Assigned At : Social History Observation Description Sex Assigned At Male Encounters Encounter Location Date Provider Diagnosis [address] [phone] SHANTA OLIVA Plan Of Treatment Next Appt Details Provider Name:SHANTA OLIVA, 03/2025 11:15:00 AM, [address] [place] [address], [phone], Progress Notes * EVANSJannaAisha Bueno ODOB: 2000 (24 yo M)Acc No.[id number]:05/10/2024 Progress Notes Patient: Aisha Narayan Provider: Yennifer OLIVA :2000 A ge:24 Y S ex:Male Date:05/10/2024 Address:[address] , [address] , [facility] [id number] Subjective: * Chief Complaints: * C ounseling/Testing * Medications: T akingTruvada 200-300 MG Tablet 1 tablet Orally Once a day Doxycycline Hyclate 100 MG Tablet 2 tablets Orally Take ideally within 24 hours but can be up to 72 hours after unprotected episode. No more than 1 dose in 24 hours Taking Truvada 200-300 MG Tablet 1 tablet Orally Once a day Taking Doxycycline Hyclate 100 MG Tablet 2 tablets Orally Take ideally within 24 hours but can be up to 72 hours after unprotected episode. No more than 1 dose in 24 hours * Electronic signature of SABINA OLIVA CNM on 02/11/2025 at 03:08 PM EDT Sign off status: Pending * Provider: Yennifer OLIVA Date: 0 05/10/2024 Generated for Camilo Foote/[place] on: 1 03:08 PM EDT
--- NOTE | 2025-02-11 11:40 | A.OFFPC_ITS ---
Vital Signs 02/11/25 11:43 Height 5 ft 6 in Weight 138 lb 6 oz BMI 22.3 BP 130/68 Blood Pressure Location Lt brachial Position Sitting Pulse 58 Pulse Source Pulse Oximeter Temp 97.3 F Temp Source Temporal Artery Scan Pulse Oximetry (%) 97 Oxygen Delivery Method Room Air Intake Visit Reasons: DR Manjarrez Intake Note: Patient is here today for SANJEEV from Dr Manjarrez Clinical Data Coordinator Required: No Music Rehabilitation Therapist: Not Required per policy Accompanied by: Self / Same As Patient Allergies benzoyl peroxide Allergy (Unknown, Verified 02/11/25 11:42) Facial Swelling onion Allergy (Unknown, Verified 02/11/25 11:42) Headache peanut Allergy (Unknown, Verified 02/11/25 11:42) Facial Swelling Medication List - Last Reconciled 02/11/25 by Matthew Mitchell MD emtricitabine-tenofovir (TDF) 200-300 mg 1 tab PO DAILY multivitamin,tx-minerals (Multi-Vitamin HP/Minerals capsule) 1 cap PO DAILY Tobacco use date assessed: 02/11/25 Dental Screening Dental Screen Date: 02/11/25 Did you have a dental visit in the last 12 months?: No Did you have a dental problem in the last 6 months where you did not have access to dental care?: No Was dental information given to patient?: No HPI HPI Comments History of Present Illness Details The patient is a 24-year-old male presenting to [facility] care. HE has known history of HIV and Sjogren disease. 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 He reports experiencing severe symptoms at times, including dry mouth and difficulty speaking due to arthritis, necessitating constant hydr ation. Dietary changes (vegan diet) were attempted for six to eight months without significant improvement in symptoms. The patient is also managing HIV infection, for which he is taking Entricitabine - Tenofovir and is under regular follow-up with an external ID physician. His CD4 count and viral load are monitored regularly. He reports having hemorrhoids, which he associates with prior Accutane use and dehydration from Sj?gren's syndrome. The patient has received several vaccinations recently, including HPV, Hepatitis B, and flu vaccines. [facility] Medical History Rash on lips Physical exam Sjogrens syndrome Surgical History No pertinent past surgical history Family History Father No problems noted. Mother No problems noted. Social History Housing: Apartment Alcohol intake: never Patient Tobacco Use Status: Never used Tobacco Tobacco use type: Cigarette e-Cigarette/Vaping Use: Never Used Second Hand Smoke Exposure: No service: No Current occupational status: student Current occupational exposures/hazards: No Cognitive needs: No Hearing needs: No Vision needs: No Questionnaire PHQ-9 Over the last 2 weeks, how often have you been bothered by any of the following problems? 1. Little interest or pleasure in doing things: not at all 2. Feeling down, depressed, or hopeless: not at all 3. Trouble falling or staying asleep, or sleeping too much: not at all 4. Feeling tired or having little energy: not at all 5. Poor appetite or overeating: not at all 6. Feeling bad about yourself - or that you are a failure or have let yourself or your family down: not at all 7. Trouble concentrating on things, such as reading the newspaper or watching television: not at all 8. Moving or speaking so slowly that other people could have noticed. Or the opposite - being so fidgety or restless that you have been moving around a lot more than usual: not at all 9. Thoughts that you would be better off or of hurting yourself in some way: not at all Total score: 0 Depression Screening Interpretation: Negative Depression Screening Done: Yes Source: Developed by Drs. Deng Mckeon, Andria Morejon, Lee Keenan and colleagues, with an educational cruzito from [employer]. Thrive Questionnaire Date Thrive assessed: 02/04/25 I am a: Patient What is your living situation today?: I do not have a steady places to live I choose not to answer this question Within the past 12 months, did the food you bought not last and you didn't have the money to get more?: Often true Within the past 12 months, did you worry whether your food would run out before you got money to buy more?: Often true Do you have trouble paying for medicines?: Yes Do you have trouble getting transportation to medical appointments?: No Do you have trouble paying your heating and electricity bill?: Yes Do you have trouble taking care of your child, family member or friend?: No Do you have trouble with day-to-day activities such as bathing, preparing meals, shopping, managing finances, etc.?: No Are you currently unemployed and looking for a job?: No Are you interested in more education?: Yes Please select the resources that you would like help with: Housing/Skilled Nursing, Food, Paying for medicine and Education Currently or been in a relationship where the following occur: No concerns reported THRIVE Score: 4 AUDIT C Alcohol Use Questionnaire (AUDIT-C) 1. How often do you have a drink containing alcohol?: Never 3. How often do you have six or more drinks on one occasion?: Never Total Score: 0 CHRISTINA-7 AMB Questionnaire CHRISTINA-7 Date CHRISTINA - 7 assessed: 01/31/24 Feeling nervous, anxious, or on edge: 0 = Not at all Not being able to stop or control worryin = Not at all Worrying too much about different things: 1 = Several days Trouble relaxin = Not at all Being so restless that it is hard to sit still: 0 = Not at all Becoming easily annoyed or irritable: 0 = Not at all Feeling afraid as if something awful might happen: 0 = Not at all Total CHRISTINA-7 score (0-4 normal; 5-9 mild; 10-14 moderate; 15-21 severe): 1 Source: Developed by Drs. Deng Mckeon, Andria Morejon, Lee Keenan and colleagues, with an educational cruzito from [employer]. Physical exam (Primary Care) Vital Signs: Last Vital Signs Temp 97.3 F 02/11/25 11:43 Pulse 58 02/11/25 11:43 BP 130/68 02/11/25 11:43 Pulse Ox 97 02/11/25 11:43 Oxygen Delivery Method Room Air 02/11/25 11:43 BMI result Body Mass Index 22.3 Tobacco/Smoking Status: Tobacco use Status Tobacco use date assessed 02/11/25 02/11/25 11:49 Patient Tobacco Use Status Never used Tobacco 02/11/25 11:41 Tobacco use type Cigarette 02/11/25 11:41 e-Cigarette/Vaping Use Never Used 02/11/25 11:41 PHQ-9: PHQ-9 Score PHQ-9: Total score 0 02/11/25 12:00 Depression Screening Interpretation: Negative Thrive Assessment: Date of Thrive Assessment Date Thrive assessed 02/04/25 02/11/25 11:41 Currently or been in a relationship where the following occur: No concerns reported Immunizations Boostrix Tdap 2.5 Lf unit-8 mcg-5 Lf/0.5 mL intramuscular syringe Performing Provider: Mattehw Mitchell MD [facility] Administered by: DAVION Gutiérrez on 02/11/25 12:25 Dose Route Admin Location Dispensed Lot Number Expiration Date NDC Drill Rig Operator 0.5 mL IM Left Deltoid 0.5 mL [id number] 02/14/27 [id number] [employer] Total Dispensed Waste 0.5 mL 0 % VIS Given Date VIS Provided VIS Publication Date 02/11/25 Single Vaccine 20 Eligibility Eligibility Date Funding Source Not [facility] Eligible 02/11/25 Private Coding Level of Care Code Est Pt Level 4 (48747) Est Pt Prev Care 18-39y(57260) Diagnoses Sjogren's syndrome with dental involvement M35.0C Sjogren organ or system involvement: dental involvement Healthcare maintenance Z00.00 HIV disease B20 Hemorrhoids K64.9 Time Spent (min) 30 Assessment & Plan Assessment & Plan (1) Sjogrens syndrome: Code(s): M35.00 - Sjogren syndrome, unspecified Category: Medical Qualifiers: Sjogren organ or system involvement: dental involvement Qualified Code(s): M35.0C - Sjogren syndrome with dental involvement Plan: Patient has not been on any medications for multiple years. HE does not follow with rheumatology. Artificial Saliva ordered. Referral to rheumatology ordered. Advised further dietary changes including reducing dairy, gluten, red meat and sugar. Although Vegan diet did not work in the past, Gluten and other allergen might have been contributing. (2) Healthcare maintenance: Code(s): Z00.00 - Encounter for general adult medical examination without abnormal findings Category: Medical Plan: CBC, CMP, Lipid panel, A1C, TSH w T4, vit D. Ordered today. Shingles 2 doses when >50 yo. NI. COVID: two doses. Completed in the past. Pneumococcal: 19-64. NI. Flu vaccine: got it 2 months. Tdap: Today. HPV: Completed. Colonoscopy: 45-75. At 45. No family history. AAA: 65 -75. NI. CT lun - 80. NI. PSA: 50 - 70 every two years. at 50. HIV: Today. HBV: today HCV: Today. (3) HIV disease: Code(s): B20 - Human immunodeficiency virus [HIV] disease Category: Medical Plan: Managed by external provider. We elicia continue to monitor peripherally. (4) Hemorrhoids: Code(s): K64.9 - Unspecified hemorrhoids Category: Medical Plan: Hemmorex supositories. Plan During the visit, I discussed the importance of specialist follow-up for Sj?gren's syndrome and the potential benefits of dietary modifications. We also reviewed the patient's current management plan for HIV, emphasizing the need for regular monitoring of CD4 count and viral load. For hemorrhoids, I suggested trying a stronger prescription medication to alleviate symptoms. We also ensured the patient is up-to-date with vaccinations, including HPV, Hepatitis B, and flu vaccines. Tdap administered today. Orders: Orders Complete Blood Count no Diff Today Z00.00 - Encounter for general adult medical examination without abnormal findings Comprehensive Met. Panel Today Z00.00 - Encounter for general adult medical examination without abnormal findings Hepatitis C Antibody Reflex Today Z00.00 - Encounter for general adult medical examination without abnormal findings HIV Ab/Ag Today Z00.00 - Encounter for general adult medical examination with out abnormal findings Hepatitis B Surface Antibody Today Z00.00 - Encounter for general adult medical examination without abnormal findings Hepatitis B Core Antibody Today Z00.00 - Encounter for general adult medical examination without abnormal findings TSH reflex Free T4 Today Z00.00 - Encounter for general adult medical examination without abnormal findings Lipid Panel Today Z00.00 - Encounter for general adult medical examination without abnormal findings Hepatitis B Surface Antigen Today Z00.00 - Encounter for general adult medical examination without abnormal findings Vitamin D 25-OH (D2 and D3) Today Z00.00 - Encounter for general adult medical examination without abnormal findings Hemoglobin A1c Today Z00.00 - Encounter for general adult medical examination without abnormal findings TDaP Immunization Today Z23 - Encounter for immunization Referrals Rheumatology Referral M35.00 - Sjogren syndrome, unspecified Medications: New artificial saliva (cmce-lytes) administer while awake 1 spray mucous membrane Q4H PRN 120 mL 0RF dry mouth hydrocortisone acetate (Hemmorex-HC) 25 mg [place] DAILY 12 ea 0RF
[2025-02-11 11:43] VITALS: BP 130/68; PULSE 58; TEMP 36.3; O2SAT 97; BMI 22.3
--- OUTSIDE RECORDS SUMMARY | 2025-02-11 15:08 | XMS_ITS | Clinical Summary ---
Author Organization [facility] Facility Address [address] [address] Care Team Providers Care Progressive Die Maker Name Role Phone Brian Manjarrez MD Primary Care Provider [phone] Social History Tobacco Use Types Packs/Day Years Used Date Smoking Tobacco: Never Assessed Sex and Gender Information Value Date Recorded Sex Assigned at Not on file Legal Sex Male 3:02 PM EDT Gender Identity Not on file Sexual Orientation Not on file Plan of Treatment Health Maintenance Due Date Last Done Comments Hepatitis B Vaccine (1 of 3 - 19+ 3-dose series) 2019 Influenza Vaccine (#1) 2024 Pneumococcal Vaccine: Peds ( 0 to 5 Years) and At-Risk Patients (6 to 49 Years) Aged Out No longer eligible b ased on patient's age to complete this topic Insurance * Guarantor: Aisha Baron Account Type Relation to Patient Date of Phone Billing Address Personal/Family Self [address] [place] [address] [facility] Medicaid * Guarantor: Aisha Baron Account Type Relation to Patient Date of Phone Billing Address Personal/Family Self [address] [place] [address] [facility] Medicaid Care Teams Progressive Die Maker Relationship Specialty Start Date End Date Brian Manjarrez MD [address] [place], [place] PCP - General Internal Medicine 10/19/20
--- OUTSIDE RECORDS SUMMARY | 2025-02-11 15:08 | XMS_ITS | Clinical Summary ---
Author Organization [facility] Address [address] [place] [id number] Phone Care Team Providers Care Embroidery Machine Operator Name Role Phone Brian Manjarrez MD Primary Care Provider [phone] Allergies Active Allergy Reactions Criticality Noted Date Comments Benzoyl Peroxide 02/03/2021 acne Onion 02/03/2021 Nausea, Headache Peanut 02/03/2021 Medications ISOtretinoin (ACCUTANE) 40 MG capsule Take 40 mg by mouth 2 (two) times a day. Active emtricitabine-te nofovir DF (TRUVADA) 200-300 mg per tablet Take 1 tablet by mouth daily. Active EPINEPHrine 0.3 mg/0.3 mL auto-injector Inject 0.3 mg into the muscle as needed. Active pilocarpine (SALAGEN) 5 MG tablet Take 1 tablet (5 mg total) by mouth 3 (three) times a day. 90 tablet 1 1 Active Additional Information Patient not taking.Reported on 03/24/2021 hydrOXYchloroQUI NE (PLAQUENIL) 200 mg tabletIndication s:sjogrens syndrome with arthralgias Take 1 tablet (200 mg total) by mouth daily. Indications: sjogrens syndrome with arthralgias 30 tablet 2 2 Active cevimeline (EVOXAC) 30 mg capsuleIndicatio ns:Sjogren's syndrome with inflammatory arthritis TAKE 1 CAPSULE BY MOUTH 3 TIMES A DAY. 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 Pt agrees to referral for PT Primary Sjogren's syndrome 03/11/2021 Overview (03/11/2021): 20 yo male with hx of dry eyes and dry mouth (since 2018) associated with a positive sjogren's antibodies.(pos Ro) Additional lab workup revealed elevated free light chain , but normal SPEP He has significant arthralgias and tender joints although no obvious synovitis. Will presrcibe Plaquneil 200 mg q day. Hydroxychloroquine (Plaquenil) side effects were discussed with patient - Nausea and diarrhea, which often improve with time or by taking the medication with food or milk. ? ? ?Less common side effects include:? - Skin rashes? - Changes in skin pigment (such as darkening or dark spots)? - Hair changes (bleaching or thinning of hair) - Anemia (rare) ? - Vision changes or loss of vision (rare). This is more likely in individuals taking high doses for many years, those over the age of 60, or in those with significant kidney disease. ? ? Pt understands the need to have regular (annual) eye exams while taking the drug. In addition, will prescribe Salagen 5 mg TID. Common side effects are increased sweating, dizziness, flushing of face, palpitations buttermaker continuous churn potential rare complications were discussed with pt including ILD, B cell lymphoma and renal tubular acidosis. I recommend once a year monitoring with CXR, UA and SPEP (2 x year) Assessment & Plan (11/10/2021 4:47 PM EDT): 20 yo male with hx of dry eyes and dry mouth (since 2018) associated with a positive sjogren's antibodies.(pos Ro) Plaquenil has been helpful for arthralgias, will continue. Reminded pt that he needs UTD eye exam Low dose Evoxac has been helpful and will be continued for dry mouth shelter potential rare complications were discussed with pt including ILD, B cell lymphoma and renal tubular acidosis. I recommend monitoring with CXR, UA and SPEP -will order today and follow yearly Assessment & Plan (07/25/2021 1:08 PM EDT): Hx of dry eyes and dry mouth (since 2018) associated with a positive sjogren's antibodies.(pos Ro) consistent with dx of Sjogren's syndrome Additional lab workup revealed elevated free light chain , but normal SPEP He has significant arthralgias and tender joints although no obvious synovitis. Will presrcibe Plaquneil 200 mg q day has been helpful for arthralgias, to be continued. Pt understand he needs UTD eye exam He was unable to tolerated Salagen TID due to excessive sweating. Salagen once a day has been helpful , to be continued. Recent dental exam per pt was normal shelter potential rare complications were discussed with pt including ILD, B cell lymphoma and renal tubular acidosis. 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 Pt agrees to referral for PT Assessment & Plan (03/11/2021 5:41 PM EST): 20 yo male with hx of dry eyes and dry mouth (since 2018) associated with a positive sjogren's antibodies.(pos Ro) Additional lab workup revealed elevated free light chain , but normal SPEP He has significant arthralgias and tender joints although no obvious synovitis. Will presrcibe Plaquneil 200 mg q day. Hydroxychloroquine (Plaquenil) side effects were discussed with patient - Nausea and diarrhea, which often improve with time or by taking the medication with food or milk. ? ? ?Less common side effects include:? - Skin rashes? - Changes in skin pigment (such as darkening or dark spots)? - Hair changes (bleaching or thinning of hair) - Anemia (rare) ? - Vision changes or loss of vision (rare). This is more likely in individuals taking high doses for many years, those over the age of 60, or in those with significant kidney disease. ? ? Pt understands the need to have regular (annual) eye exams while taking the drug. In addition, will prescribe Salagen 5 mg TID. Common side effects are increased sweating, dizziness, flushing of face, palpitations shelter potential rare complications were discussed with pt including ILD, B cell lymphoma and renal tubular acidosis. I recommend once a year monitoring with CXR, UA and SPEP (2 x year) Social History Tobacco Use Types Packs/Day Years Used Date Smoking Tobacco: Never Smokeless Tobacco: Never Education Answer Date Recorded Are you interested in more education? Not on vita e 08/20/2022 Are you concerned about learning? Not on file 08/20/2022 No 08/20/2022 No 08/20/2022 Digital Access Answer Date Recorded No 09/18/2022 No 09/18/2022 Reliable internet access at home? Not on file 09/18/2022 Device with a working camera? Not on file Sex and Gender Information Value Date Recorded Sex Assigned at Not on file Legal Sex Male 1:20 PM EDT Gender Identity Not on file Sexual Orientation Not on file Last Filed Vital Signs Vital Sign Reading Time Taken Comments Blood Pressure 116/72 03/11/2021 4:31 PM EST Pulse 85 11/09/2021 3:24 PM EDT Temperature - - Respiratory Rate 16 03/11/2021 4:31 PM EST Oxygen Saturation 98% 11/09/2021 3:24 PM EDT Inhaled Oxygen Concentration - - Weight 59 kg (130 lb) 11/09/2021 3:24 PM EDT Height 168 cm (5' 6.14 ) 07/23/2021 1:22 PM EDT Body Mass Index 20.89 07/23/2021 1:22 PM EDT Plan of Treatment Health Maintenance Due Date Last Done Comments Adult Td,Tdap Booster 2000 DEPRESSION SCREENING 2012 SMOKING Hx and SMOKELESS TOBACCO SCREENING 2013 HPV VACCINES (1 - Male 3-dos e series) 2015 HEPATITIS C SCREENING 2018 HIV ONE-TIME SCREENING (18-6 5 YEARS) 2018 INFLUENZA VACCINE (#1) 2024 COVID-19 VACCINE (3 - 2024-2 6 season) 2024 09/29/2020, 08/31/2020 HEPATITIS A VACCINES Aged Out No long er eligible based on patient's age to complete this topic HIB VACCINES Aged Out No longer eligi ble based on patient's age to complete this topic MENINGOCOCCAL VACCINES (ACWY) Aged Out No longer eligible based on patient's age to complete this topic MENINGOCOCCAL VACCINES (B) Aged Out N o longer eligible based on patient's age to complete this topic PNEUMOCOCCAL VACCINES (0-49 years) Aged Out No longer eligible b ased on patient's age to complete this topic Medical Devices Not on file Insurance [address] [address] [address] [place] [address] [address] [facility] [place] [address] [place] [address] [place] [address] [facility] [facility] [facility] [id number] Care Teams Embroidery Machine Operator Relationship Specialty Start Date End Date Brian Manjarrez MD [address] [place] [address] PCP - General 11/24/20 Additional Source Comments The information contained in this document represents components of the legal health record. It is not the complete legal health record.[facility]
--- OUTSIDE RECORDS SUMMARY | 2025-02-11 15:09 | XMS_ITS | Patient Health Record ---
Author Organization [facility] Address [address] [place] [address] Care Team Providers Care Student Services Representative Name Role Phone SHANTA OLIVA [phone] Allergies Allergen (clinical drug ingredient) Drug/Non Drug Allergy documented on EMR Reaction Allergy Type Onset Date Status peanut allergenic extract Peanut (Diagnostic) Unknown Drug Allergy Active Benzoyl Perox-Hydrocortisone Unknown Drug Allergy Active Results Component Value Reference Range Flag Notes Ct/GC YULIANA, Pharyngeal-[id number] Reviewed date:08/23/2024 02:28:16 PM Interpretation:Negative Performing Lab:[facility] [place], [address], [address], [facility], Phone - [phone], Director - [facility] Notes/Report: C. trachomatis, YULIANA, Pharyn Negative Negative N. gonorrhoeae, YULIANA, Pharyn Negative Negative Ct/GC YULIANA, Rectal-[id number] Reviewed date:08/23/2024 02:28:24 PM Interpretation:Negative Performing Lab:[facility] [place], [address], [address], [facility], Phone - [phone], Director - [facility] Notes/Report: C. trachomatis, YULIANA, Rectal Negative Negative N. gonorrhoeae, YULIANA, Rectal Negative Negative Chlamydia/GC Amplification-1 [id number] Reviewed date:08/23/2024 02:28:32 PM Interpretation:Negative Performing Lab:[facility] [place], [address], [address], [facility], Phone - [phone], Director - [facility] Notes/Report: Chlamydia trachomatis, YULIANA Negative Negative Neisseria gonorrhoeae, YULIANA Negative Negative HIV Ab/p24 Ag with Reflex-[id number] Reviewed date:08/23/2024 02:28:41 PM Interpretation:Negative Performing Lab:[facility] [place], [address], [address], [place], Phone - [phone], Director - [facility] Notes/Report: HIV Ab/p24 Ag Screen Non Reactive Non Reactive HIV-1/HIV-2 antibodies and HIV-1 p24 antigen were NOT detected. There is no laboratory evidence of HIV infection. HIV Negative T pallidum Screening [place] -[id number] Reviewed date:08/22/2024 10:33:23 AM Interpretation:Negative Performing Lab:[facility] [place], [address], [address], [place], Phone - [phone], Director - [facility] Notes/Report: T pallidum Antibodies Non Reactive Non Reactive Ct/GC YULIANA, Pharyngeal-[id number] Reviewed date:12/03/2024 12:00:10 PM Interpretation:negative Performing Lab:[facility], [address], [address], [place], Phone - [phone], Director - [facility] Notes/Report: C. trachomatis, YULIANA, Pharyn Negative Negative N. gonorrhoeae, YULIANA, Pharyn Negative Negative Ct/GC YULIANA, Rectal-[id number] Reviewed date:12/03/2024 11:59:13 AM Interpretation:negative Performing Lab:[facility], [address], [address], [place], Phone - [phone], Director - [facility] Notes/Report: C. trachomatis, YULIANA, Rectal Negative Negative N. gonorrhoeae, YULIANA, Rectal Negative Negative Chlamydia/GC Amplification-1 [id number] Reviewed date:12/03/2024 11:59:55 AM Interpretation:negative Performing Lab:[facility], [address], [address], [place], Phone - [phone], Director - [facility] Notes/Report: Chlamydia trachomatis, YULIANA Negative Negative Neisseria gonorrhoeae, YULIANA Negative Negative HCV Antibody RFX to Quant PC [id number] Reviewed date:12/03/2024 11:59:21 AM Interpretation:non reactive Performing Lab:[facility], [address], [address], [place], Phone - [phone], Director - [facility] Notes/Report: HCV Ab Non Reactive Non Reactive Interpretation: suspected (which may be delayed in an immunocompromised Not infected with HCV unless early or acute infection is individual), or other evidence exists to indicate HCV infection. HIV Ab/p24 Ag with Reflex-[id number] Reviewed date:12/04/2024 09:11:00 AM Interpretation:non reactive Performing Lab:[facility] [place], [address], [address], [place], Phone - [phone], Director - [facility] Notes/Report: HIV Ab/p24 Ag Screen Non Reactive Non Reactive HIV-1/HIV-2 antibodies and HIV-1 p24 antigen were NOT detected. There is no laboratory evidence of HIV infection. HIV Negative T pallidum Screening [place] -[id number] Reviewed date:12/03/2024 11:59:28 AM Interpretation:non reactive Performing Lab:[facility] [place], [address], [address], [facility], Phone - [phone], Director - [facility] Notes/Report: T pallidum Antibodies Non Reactive Non Reactive Hep B Core Ab, Tot-[id number] Reviewed date:12/03/2024 11:59:41 AM Interpretation:negative Performing Lab:[facility] [place], [address], [address], [facility], Phone - [phone], Director - [facility] Notes/Report: Hep B Core Ab, Tot Negative Negative Hepatitis B Surf Ab Quant-[id number] Reviewed date:12/03/2024 08:52:25 AM Interpretation:Not Immune Performing Lab:[facility] [place], [address], [address], [facility], Phone - [phone], Director - [facility] Notes/Report: Hepatitis B Surf Ab Quant 6.2 Immunity>10 mIU/mL L Consistent with Immunity >10.0 Inconsistent with Immunity 0.0 - 10.0 Status of Immunity Anti-HBs Level HBsAg Screen-[id number] Reviewed date:12/03/2024 11:59:48 AM Interpretation:negative Performing Lab:[facility] [place], [address], [address], [facility], Phone - [phone], Director - [facility] Notes/Report: HBsAg Screen Negative Negative Creatinine-[id number] Reviewed date:12/04/2024 09:10:52 AM Interpretation:Cr 0.99, eCrCl 100ml/min Performing Lab:[facility], [address] [place] [address], [place], Phone - [phone], Director - [facility] Notes/Report: Creatinine 0.99 0.76-1.27 mg/dL eGFR 109 >59 mL/min/1.73 Ct/GC YULIANA, Pharyngeal-[id number] Reviewed date:05/06/2024 01:01:43 PM Interpretation:Negative Performing Lab:[facility] [place], [address], [address], [place], Phone - [phone], Director - [facility] Notes/Report: C. trachomatis, YULIANA, Pharyn Negative Negative N. gonorrhoeae, YULIANA, Pharyn Negative Negative Ct/GC YULIANA, Rectal-[id number] Reviewed date:05/06/2024 01:01:33 PM Interpretation:Negative Performing Lab:[facility] [place], [address], [address], [place], Phone - [phone], Director - [facility] Notes/Report: C. trachomatis, YULIANA, Rectal Negative Negative N. gonorrhoeae, YULIANA, Rectal Negative Negative Chlamydia/GC Amplification-[id number] Reviewed date:05/06/2024 01:01:24 PM Interpretation:Negative Performing Lab:[facility], [address], [address], [place], Phone - [phone], Director - [facility] Notes/Report: Chlamydia trachomatis, YULIANA Negative Negative Neisseria gonorrhoeae, YULIANA Negative Negative HIV Ab/p24 Ag with Reflex-08 [id number] Reviewed date:05/06/2024 01:01:15 PM Interpretation:Negative Performing Lab:[facility] [place], [address], [address], [place], Phone - [phone], Director - [facility] Notes/Report: HIV Ab/p24 Ag Screen Non Reactive Non Reactive There is no laboratory evidence of HIV infection. HIV-1/HIV-2 antibodies and HIV-1 p24 antigen were NOT detected. HIV Negative T pallidum Screening [place] -[id number] Reviewed date:05/06/2024 01:01:05 PM Interpretation:Negative Performing Lab:[facility] [place], [address], [address], [place], Phone - [phone], Director - [facility] Notes/Report: T pallidum Antibodies Non Reactive Non Reactive Reason For Referral No Information Medications Medication SIG (Take, Route, Frequency, Duration) [...] History Observation Description Sex Assigned At Male Social History HIV Risk Assessment Social Info Question Answer Notes Additional Questions Is an HIV Risk Assessment being c onducted? Yes Have you been tested for HIV before? No Did you have a blood transfusion prior to 1985? No Do you have an unlicensed body piercing or tattoo? No Reproductive Life Plan: Social Info Question Answer Notes Reproductive Life Plan: Do you want to h ave children? Yes, I want to have children How long would you like to wait until you/your partner becomes ? not sure Human Trafficking: Social Info Question Answer Notes Human Trafficking Experienced: No PrEP for HIV: Social Info Question Answer Notes PrEP for HIV Is the client intere sted in beginning/continuing PrEP for HIV? Yes Continuation Do you currently have any HIV+ partners? No In the past 6 months, have you had any HIV+ partners? No Are you a commercial sex worker? No Sexual History: Social Info Question Answer Notes Sexual History: Sexual History Reviewed: Partner s, Practices, Protection/Past STIs Currently sexually active? Yes Sexually active with: Men Your sexual activities include: anal intercourse, oral intercourse Do you use condoms? Yes Condoms are used: always Date of last unprotected intercourse: 10/29/2024 Number of partners in past 3 months: 3 Number of partners in past year: 3 Does your partner(s) currently have any STIs? No Counseling Provided: Social Info Question Answer Notes Counseling Provided Please indicate the length of time, in minutes, that counseling was provided. 5 Counseling Was Provided By: elizabeth Drugs/Alcohol: Social Info Question Answer Notes Drug/Alcohol Use Do you or have you used drugs? No Do you or have you used alcohol? Yes, currently socially Food Access: Social Info Question Answer Notes Food Access The Client's current access to food is Secure Food Access Relationships: Social Info Question Answer Notes Relationships Has the client experienced any of the following: Client has never experienced harmful relationships DO NOT USE - Travel Plans: Social Info Question Answer Notes Travel Plans DO NOT USE - Has cli ent traveled to any Zika affected areas? No DO NOT USE - Has partner traveled to any Zika af fected areas? No DO NOT USE - Is client planning to travel to any Zika affected areas? No DO NOT USE - Is partner planning to travel to an y Zika affected areas? No Housing Social Info Question Answer Notes Housing The client's current living situation is: stable housing Tobacco Use: Social Info Question Answer Notes Tobacco Use: Do you/have you used tobacco? No Tobacco Smoking Status Unknown if ever smoked Section Notes: Aptima/Bw Bw - Aptima/ bw Aptima/ bw Vital Signs Blood pressure diastolic 68 mm Hg 11/29/2024 Height 5'5 in 11/29/2024 Blood pressure systolic 110 mm Hg 11/29/2024 Weight 137 lbs 11/29/2024 BMI 22.8 kg/m2 11/29/2024 Encounters Encounter Location Date Provider Diagnosis [address] [id number] 05/01/2024 SHANTA OLIVA Encounter for screen ing for human immunodeficiency virus [HIV] Z11.4 ; Encounter for HIV pre-exposure prophylaxis Z29.81 ; Encounter for screening for infections with a predominantly sexual mode of transmission Z11.3 and Other problems related to lifestyle Z72.[address] [id number] 08/21/2024 SHANTA OLIVA Encounter for screen ing for human immunodeficiency virus [HIV] Z11.4 ; Encounter for HIV pre-exposure prophylaxis Z29.81 ; Encounter for screening for infections with a predominantly sexual mode of transmission Z11.3 ; Other problems related to lifestyle Z72.89 and Contact with and (suspected) exposure to infections with a predominantly sexual mode of transmission Z20.[address] [id number] 11/29/2024 SHANTA OLIVA Encounter for screen ing for human immunodeficiency virus [HIV] Z11.4 ; Encounter for HIV pre-exposure prophylaxis Z29.81 ; Encounter for screening for infections with a predominantly sexual mode of transmission Z11.3 ; Other problems related to lifestyle Z72.89 and Screening for other viral diseases Z11.59 [facility] [address] [place] [id number] 05/01/2024 SHANTAIGNACIO OLIVA [facility] [address] [place] [address] [id number] 05/01/2024 SHANTA PJ [facility] [address] [place] [address] [id number] 08/21/2024 SHANTA PJ [facility] [address] [place] [address] [id number] 11/08/2024 SHANTA PJ Encounter for HIV pre-exposure prophylaxis Z29.81 [facility] [address] [place] [address] [phone] 11/29/2024 SHANTA PJ Assessments Encounter Date Diagnosis (ICD Code) Assessment Notes Treatment Notes Treatment Clinical Notes Section Notes 05/01/2024 Encounter for screening for human immunodeficiency virus [HIV] (ICD-10 - Z11.4) Need 2 out of 3 Sections from A-C Section A) Problems (only need one from below) Section B) Data (need at least one of the following categories in this section) Category 1: (Choose three of the following): Order Unique tests Section C) Risk (any one of the following) Prescription drug management (this counts for the whole section) 08/21/2024 Encounter for screening for human immunodeficiency virus [HIV] (ICD-10 - Z11.4) Need 2 out of 3 Sections from A-C Section A) Problems (only need one from below) Section B) Data (need at least one of the following categories in this section) Category 1: (Choose three of the following): Order Unique tests Section C) Risk (any one of the following) Prescription drug management (this counts for the whole section) 11/08/2024 Encounter for HIV pre-exposure prophylaxis (ICD-10 - Z29.81) 11/29/2024 Encounter for screening for human immunodeficiency virus [HIV] (ICD-10 - Z11.4) Need 2 out of 3 Sections from A-C Section A) Problems (only need one from below) Section B) Data (need at least one of the following categories in this section) Category 1: (Choose three of the following): Order Unique tests Section C) Risk (any one of the following) Prescription drug management (this counts for the whole section) 11/29/2024 Encounter for HIV pre-exposure prophylaxis (ICD-10 - Z29.81) For PrEP labs today. Will reach out with any concerning labs. 90 day Rx sent. Need 2 out of 3 Sections from A-C Section A) Problems (only need one from below) Section B) Data (need at least one of the following categories in this section) Category 1: (Choose three of the following): Order Unique tests Section C) Risk (any one of the following) Prescription drug management (this counts for the whole section) 08/21/2024 Encounter for HIV pre-exposure prophylaxis (ICD-10 - Z29.81) For PrEP labs today. Will reach out with any concerning labs. 90 day Rx sent. Need 2 out of 3 Sections from A-C Section A) Problems (only need one from below) Section B) Data (need at least one of the following categories in this section) Category 1: (Choose three of the following): Order Unique tests Section C) Risk (any one of the following) Prescription drug management (this counts for the whole section) 05/01/2024 Encounter for HIV pre-exposure prophylaxis (ICD-10 - Z29.81) For PrEP labs today. 90 day Rx sent. Will fu with any concerning labs as needed. Will check on Doxy-PEP Rx with pharmacy as it was sent by us in 2023. Need 2 out of 3 Sections from A-C Section A) Problems (only need one from below) Section B) Data (need at least one of the following categories in this section) Category 1: (Choose three of the following): Order Unique tests Section C) Risk (any one of the following) Prescription drug management (this counts for the whole section) 08/21/2024 Encounter for screening for infections with a predominantly sexual mode of transmission (ICD-10 - Z11.3) Discussed STI risks, screenings that are available through [facility] and [facility]. Clt aware of lab processing times and how to view results on portal and how positive results will be communicated Need 2 out of 3 Sections from A-C Section A) Problems (only need one from below) Section B) Data (need at least one of the following categories in this section) Category 1: (Choose three of the following): Order Unique tests Section C) Risk (any one of the following) Prescription drug management (this counts for the whole section) 05/01/2024 Encounter for screening for infections with a predominantly sexual mode of transmission (ICD-10 - Z11.3) Discussed STI risks, screenings that are available through [facility]. Clt aware of lab processing times and how to view results on portal and how positive results will be communicated Need 2 out of 3 Sections from A-C Section A) Problems (only need one from below) Section B) Data (need at least one of the following categories in this section) Category 1: (Choose three of the following): Order Unique tests Section C) Risk (any one of the following) Prescription drug management (this counts for the whole section) 11/29/2024 Encounter for screening for infections with a predominantly sexual mode of transmission (ICD-10 - Z11.3) Discussed STI risks, screenings that are available through [facility]. Clt aware of lab processing times and how to view results on portal and how positive results will be communicated Need 2 out of 3 Sections from A-C Section A) Problems (only need one from below) Section B) Data (need at least one of the following categories in this section) Category 1: (Choose three of the following): Order Unique tests Section C) Risk (any one of the following) Prescription drug management (this counts for the whole section) 11/29/2024 Other problems related to lifestyle (ICD-10 - Z72.89) Need 2 out of 3 Sections from A-C Section A) Problems (only need one from below) Section B) Data (need at least one of the following categories in this section) Category 1: (Choose three of the following): Order Unique tests Section C) Risk (any one of the following) Prescription drug management (this counts for the whole section) 05/01/2024 Other problems related to lifestyle (ICD-10 - Z72.89) Need 2 out of 3 Sections from A-C Section A) Problems (only need one from below) Section B) Data (need at least one of the following categories in this section) Category 1: (Choose three of the following): Order Unique tests Section C) Risk (any one of the following) Prescription drug management (this counts for the whole section) 08/21/2024 Contact with and (suspected) exposure to infections with a predominantly sexual mode of transmission (ICD-10 - Z20.2) Reviewed Doxy-PEP, benefits and risks. Can potentially reduce the risk for acquiring CT, GC and syphilis by about 60%. Reviewed how to take it. 2 pills ideally within 24 hours but can be taken up to 72 hours after unprotected sex. Clt to sit up for 30 min after taking, have food prior and plenty of water. No calcium products within 2 hours of taking doxy. No more than 1 dose per 24 hours. Handout on Doxy-PEP given. Clt aware of the unknowns that are being monitored with Doxy-PEP: effect to microbiome and drug resistance concerns. Recommend regular STI screening every 3 months Need 2 out of 3 Sections from A-C Section A) Problems (only need one from below) Section B) Data (need at least one of the following categories in this section) Category 1: (Choose three of the following): Order Unique tests Section C) Risk (any one of the following) Prescription drug management (this counts for the whole section) 08/21/2024 Other problems related to lifestyle (ICD-10 - Z72.89) Need 2 out of 3 Sections from A-C Section A) Problems (only need one from below) Section B) Data (need at least one of the following categories in this section) Category 1: (Choose three of the following): Order Unique tests Section C) Risk (any one of the following) Prescription drug management (this counts for the whole section) 11/29/2024 Screening for other viral diseases (ICD-10 - Z11.59) Need 2 out of 3 Sections from A-C Section A) Problems (only need one from below) Section B) Data (need at least one of the following categories in this section) Category 1: (Choose three of the following): Order Unique tests Section C) Risk (any one of the following) Prescription drug management (this counts for the whole section) Plan Of Treatment Next Appt Details Provider Name:SHANTA OLIVA, 03/2025 11:15:00 AM, [address] [place] [address], [phone], Insurance Providers Payer Name Payer Address Payer Phone Subscriber Number Group Number Insured Name Patient Relationship to Insured Coverage Start Date Coverage End Date [facility] [employer] [address] [address] [place], [place] [id number] Aisha Baron Self - patient is the insured 4 Medications Administered Medication Instructions Date of Administration Dosage Notes Rocephin/Ceftriaxone 01/13/2023 500 mg Medical (General) History Medical History History ICD Code Sjogren's Surgical History Surgery Date(Month/Year) gloria 09/2021
== END 2025-02-11 12:27 | disposition home or self-care (01) ==
LOC: HO.HMCH 11:38
PROVIDERS: PCP Internal Medicine; Visit Provider Internal Medicine
DX: M35.0C Sjogren syndrome with dental involvement (principal); B20 Human immunodeficiency virus [HIV] disease; K64.9 Unspecified hemorrhoids; Z23 Encounter for immunization

== ENCOUNTER 2025-02-11 11:36 | Outpatient (REF) | payer OTHER, SELFPAY ==
[2025-02-11 13:59] LABS: Hematocrit 43.8 % (42.0-52.0); Hemoglobin 14.0 g/dl (14.0-18.0); Mean Corpuscular HGB Conc 32.0 g/dl (31.0-36.0); Mean Corpuscular Hemoglobin 28.3 pg (27.0-33.0); Mean Corpuscular Volume 88.7 fL (80.0-98.0); NRBC Abs Auto 0.000 X10*3/uL (0.0-0.012); NRBC Pct Auto 0.0 /100WBC (0.0-0.2); Platelet Count 202 X10*3/uL (160-400); Red Blood Count 4.94 X10*6/uL (4.60-5.80); White Blood Count 3.1 X10*3/uL (4.8-10.8)
[2025-02-11 17:43] LABS: Alanine Aminotransferase 29 U/L (0-40); Albumin Level 4.8 g/dL (3.5-5.0); Alkaline Phosphatase 83 U/L (39-117); Anion Gap 9 (12-20); Aspartate Amino Transferase 23 U/L (5-37); Blood Urea Nitrogen 13 mg/dL (9-16); Calcium 9.6 mg/dL (8.4-10.2); Carbon Dioxide 30 mmol/L (22-29); Chloride 107 mmol/L (96-108); Cholesterol 139 mg/dL (<200); Estimated Glomerular Filt Rate > 60; HDL Cholesterol 50 mg/dL (>40); Potassium 4.6 mmol/L (3.3-5.1); Sodium 141 mmol/L (135-145); Total Protein 7.0 g/dL (6.5-8.0); Triglycerides 52 mg/dL (<150)
[2025-02-12 03:38] LABS: HBS Num1 > 1000.00 mIU/mL (0-7.99); HBc Num1 0.24 S/CO (0.00-0.79); HBsAGNum1 0.36 S/CO (0.00-0.99); HIV Num 1 0.05 S/CO (0.00-0.99); Hepatitis B Surface Antigen Negative (Negative); ~HepC Num1 0.11 S/CO (0.00-0.79); ~Hepatitis B Surface Antibody REACTIVE (Nonreactive); ~Hepatitis C Antibody Nonreactive (Nonreactive)
[2025-02-15 17:42] LABS: Vitamin D 25-OH, D2 <4 ng/mL; Vitamin D 25-OH, D3 59 ng/mL; Vitamin D 25-OH, Total 59 ng/mL (30-100)
== END 2025-02-11 11:37 | disposition home or self-care (01) ==
LOC: HO.LAB 11:36
PROVIDERS: PCP Internal Medicine; Visit Provider Internal Medicine
DX: Z00.00 Encounter for general adult medical examination without abnormal findings (principal); Z23 Encounter for immunization; M35.0C Sjogren syndrome with dental involvement; B20 Human immunodeficiency virus [HIV] disease; K64.9 Unspecified hemorrhoids; Z79.899 Other long term (current) drug therapy
CPT/HCPCS: 36415; 80053; 80061; 82306; 83036; 84443; 85027; 86704; 86706; 86803; 87340; 87389